=== PATIENT | male | born 1965 | race Caucasian/White ===

== ENCOUNTER 2021-04-30 02:10 | Emergency (ER) | payer OTHER ==
[~2021-04-30] VITALS: Ht 180.3 cm; Wt 80.0 kg
[2021-04-30] MEDS ORDERED: IV NORMAL SALINE 500ML BAG 500 ML IV ONE (02:30)
[2021-04-30] MEDS ORDERED: MORPHINE SULFATE 4 MG/ML VIAL. IV ONE (02:30)
[2021-04-30] MEDS ORDERED: ONDANSETRON PF 4 MG/2 ML VIAL. IVP ONE (02:30)
--- NOTE | 2021-04-30 02:31 | ED.ADGEN ---
General Adult EDM: Chief Complaint: ABDOMINAL PAIN HPI: HPI: Patient is a 55 year old male coming in for right lower quadrant abdominal pain. Patient states that 4 days ago he was lifting his lawnmower into the back of his truck. States he was okay at that time but after he woke up in the morning afterwards he had severe pain right lower quadrant. Patient states he has had decreased p.o. intake because he is trying not to go to the restroom. Says the pain is worse with coughing, bowel movements, and urinating. Denies any hematuria or testicular pain. Denies any penile discharge. Patient has had subjective fever and chills. Had a loose bowel movement earlier today. Review of Systems: Review of Systems: All other systems within normal limits except for as noted in the HPI Current Medications: Current Medications Medications (Trade) Dose Ordered Sig/Hitesh Start Time Stop Time Status Last Admin Dose Admin Info (CONTRAST GIVEN -- Rx MONITORING) 1 each PRN DAILY PRN 04/30/21 03:00 05/02/21 02:59 Iohexol (Omnipaque 300 Mg/ml) 75 ml 1X ONCE 04/30/21 03:00 04/30/21 03:01 DC 04/30/21 03:30 75 ML Morphine Sulfate (Morphine Sulfate) 4 mg 1X ONCE 04/30/21 02:30 04/30/21 02:53 DC 04/30/21 03:32 4 MG Ondansetron HCl (Zofran) 4 mg 1X ONCE 04/30/21 02:30 04/30/21 02:53 DC 04/30/21 03:32 4 MG Sodium Chloride 500 ml @ 500 mls/hr 1X ONCE 04/30/21 02:30 04/30/21 03:29 DC 04/30/21 03:31 500 MLS/HR Allergies: Allergies: Allergies Coded Allergies Type Severity Reaction Last Updated Verified Penicillins Allergy Intermediate 04/30/21 Yes Physical Exam: PE: Constitutional: Well developed, well nourished, no acute distress, non-toxic appearance. [] HENT: Normocephalic, atraumatic, bilateral external ears normal, nose normal. [] Eyes: PERRLA, conjunctiva normal, no discharge. [] Neck: No rigidity, supple, no stridor. [] Cardiovascular: Regular rate and rhythm, brisk cap refill [] Lungs & Thorax: Non labored symmetric respirations, no tachypnea or respiratory distress [] Abdomen: Soft, nondistended, right inguinal tenderness and lump. Skin: Warm, dry, no erythema, no rash. [] Back: Unremarkable Extremities: No deformities, range of motion grossly intact, no lower extremity edema [] Neurologic: Alert and oriented X 3, no focal deficits noted. [] Psychologic: Affect normal, judgement normal, mood normal. [] Current Patient Data: Labs: Laboratory Tests Test 04/30/21 02:20 04/30/21 03:04 Urine Collection Type Unknown Urine Color Yellow Urine Clarity Clear Urine pH 6.5 (<5.0-8.0) Urine Specific [place] >=1.030 (1.000-1.030) Urine Protein 30 mg/dL (NEG-TRACE) Urine Glucose (UA) Negative mg/dL (NEG) Urine Ketones (Stick) Negative mg/dL (NEG) Urine Blood Negative (NEG) Urine Nitrite Negative (NEG) Urine Bilirubin Negative (NEG) Urine Urobilinogen Dipstick 1.0 mg/dL (0.2 mg/dL) Urine Leukocyte Esterase Negative (NEG) Urine RBC Occ /HPF (0-2) Urine WBC 0 /HPF (0-4) Urine Squamous Epithelial Cells Occ /LPF Urine Bacteria 0 /HPF (0-FEW) White Blood Count 6.4 x10^3/uL (4.0-11.0) Red Blood Count 4.89 x10^6/uL (4.30-5.70) Hemoglobin 14.3 g/dL (13.0-17.5) Hematocrit 40.4 % (39.0-53.0) Mean Corpuscular Volume 83 fL (79-100) Mean Corpuscular Hemoglobin 29 pg (25-35) Mean Corpuscular Hemoglobin Concent 36 g/dL (31-37) Red Cell Distribution Width 13.1 % (11.5-14.5) Platelet Count 143 x10^3/uL (140-400) Neutrophils (%) (Auto) 70 % (31-73) Lymphocytes (%) (Auto) 11 % (24-48) L Monocytes (%) (Auto) 19 % (0-9) H Eosinophils (%) (Auto) 0 % (0-3) Basophils (%) (Auto) 0 % (0-3) Neutrophils # (Auto) 4.5 x10^3/uL (1.8-7.7) Lymphocytes # (Auto) 0.7 x10^3/uL (1.0-4.8) L Monocytes # (Auto) 1.2 x10^3/uL (0.0-1.1) H Eosinophils # (Auto) 0.0 x10^3/uL (0.0-0.7) Basophils # (Auto) 0.0 x10^3/uL (0.0-0.2) Platelet Estimate Pending Sodium Level 132 mmol/L (136-145) L Potassium Level 4.4 mmol/L (3.5-5.1) Chloride Level 97 mmol/L (98-107) L Carbon Dioxide Level 26 mmol/L (21-32) Anion Gap 9 (6-14) Blood Urea Nitrogen 19 mg/dL (8-26) Creatinine 1.0 mg/dL (0.7-1.3) Estimated GFR (Cockcroft-Gault) 77.6 BUN/Creatinine Ratio 19 (6-20) Glucose Level 113 mg/dL (70-99) H Lactic Acid Level 1.2 mmol/L (0.4-2.0) Calcium Level 8.7 mg/dL (8.5-10.1) Total Bilirubin 0.6 mg/dL (0.2-1.0) Aspartate Amino Transferase (AST) 37 U/L (15-37) Alanine Aminotransferase (ALT) 34 U/L (16-63) Alkaline Phosphatase 90 U/L (46-116) Troponin I Quantitative < 0.017 ng/mL (0.000-0.055) Total Protein 7.1 g/dL (6.4-8.2) Albumin 3.4 g/dL (3.4-5.0) Albumin/Globulin Ratio 0.9 (1.0-1.7) L Laboratory Tests 04/30/21 03:04 Laboratory Tests 04/30/21 03:04 Vital Signs: Vital Signs Date Time Temp Pulse Resp B/P (MAP) Pulse Ox O2 Delivery O2 Flow Rate FiO2 04/30/21 04:15 96 20 147/95 (112) 97 Room Air 04/30/21 02:25 100.5 100.5 EKG: EKG: Sinus rhythm, heart rate 107 bpm, normal axis, no ST elevation depression [] Heart Score: C/O Chest Pain: No Risk Factors: Risk Factors: DM, Current or recent (<one month) smoker, HTN, HLP, family history of CAD, obesity. Risk Scores: Score 0 - 3: 2.5% MACE over next 6 weeks - Discharge Home Score 4 - 6: 20.3% MACE over next 6 weeks - Admit for Clinical Observation Score 7 - 10: 72.7% MACE over next 6 weeks - Early Invasive Strategies Radiology/Procedures: Radiology/Procedures: [facility] [address] [place] [address] IMAGING REPORT Signed PATIENT: HAYDEN JURADO AACCOUNT: [id number] : 1965 LOCATION: ER AGE: 55 SEX: M EXAM STATUS: REG ER ORD. PHYSICIAN: ANITHA FARLEY MD REASON: RLQ pain PROCEDURE: CT ABD PELV W/ IV CONTRST ONLY EXAM: CT Abdomen and Pelvis with IV contrast CLINICAL HISTORY: Right lower quadrant pain. COMPARISON: none TECHNIQUE: Helical CT of the abdomen and pelvis was performed following the administration of intravenous contrast. Axial, coronal and sagittal reformatted images were generated. PQRS compliance statement - One or more of the following individualized dose reduction techniques were utilized for this study: 1. Automated exposure control 2. Adjustment of the mA and/or kV according to patient size 3. Use of iterative reconstruction technique FINDINGS: Lower Chest: Lung bases are clear. Abdomen and Pelvis: Spleen is enlarged. Calcified gallstones are seen within the contracted gallbladder. Heterogeneous low-attenuation along the gallbladder fossa of uncertain clinical significance, possibly focal fatty infiltration. Pancreas is unremarkable. Adrenal glands are unremarkable. Right upper pole renal cyst is seen. No hydronephrosis. Symmetric nephrograms. No hydroureter. Bladder wall thickening and associated infiltration anteriorly be seen with cystitis. Appendix is normal. Moderate colonic stool content is seen. No small or large bowel dilatation. No bowel obstruction. Aortic calcifications are seen. There is asymmetric enlargement of the right rectus abdominis muscle. No abdominal or pelvic lymphadenopathy. Trace fat-containing periumbilical hernia. Bones: No aggressive osseous lesion is seen. IMPRESSION: 1. Asymmetric thickening of the right rectus abdominis muscle, of uncertain clinical significance. In the setting of trauma this could be related to hematoma or contusion. Alternatively intramuscular mass or infectious process could also have this appearance 2. Bladder wall thickening may be seen with cystitis and can be correlated with urinalysis. 3. Appendix is normal. Electronically signed by: Lenin Aguirre MD (04/30/2021 4:12 AM) [facility] DICTATED and SIGNED BY: LENIN AGUIRRE MD DATE: 04/30/21 [id number] [] Course & Med Decision Making: Course & Med Decision Making Pertinent Labs and Imaging studies reviewed. (See chart for details) Discussed with urologist. He feels a area of inflammation is consistent with my physical exam and there is no hernia. Likely a muscle contusion or tear. Discussed return precautions with patient and symptomatic treatment. [] Dragon Disclaimer: Dragon Disclaimer: This electronic medical record was generated, in whole or in part, using a voice recognition dictation system. Departure Departure Impression: Primary Impression: Strain of rectus abdominis muscle Disposition: 07 LEFT AWOL/ELOPED Condition: STABLE Referrals: NO PCP (PCP) Patient Instructions: Muscle Strain Scripts Polyethylene Glycol 3350 (MIRALAX) 119 Gm Powder 17 GM PO DAILY for constipation, #527 GM 0 Refills dissolve in water Prov: ANITHA FARLEY MD 04/30/21 Hydrocodone/Acetaminophen (Hydrocodone-Acetamin 5-325 mg) 1 Each Tablet 1 EACH PO PRN Q6-8HRS PRN for PAIN for 3 Days, #12 TAB Prov: ANITHA FARLEY MD 04/30/21 ANITHA FARLEY MD Apr 30, 2021 02:31
[2021-04-30 02:41] LABS: BILIRUBIN,URINE NEGATIVE (NEG); CLARITY,URINE CLEAR; COLOR,URINE YELLOW; NITRITE,URINE NEGATIVE (NEG); PH,URINE 6.5 (<5.0-8.0); PROTEIN,URINE 30 mg/dL (NEG-TRACE)
[2021-04-30 02:46] LABS: BACTERIA,URINE 0 /HPF (0-FEW); RBC,URINE OCC /HPF (0-2); WBC,URINE 0 /HPF (0-4)
[2021-04-30] MEDS ORDERED: IOHEXOL 300 MG/ML 100ML VIAL. IV ONE (03:00)
[2021-04-30] MEDS ORDERED: CONTRAST GIVEN. MC PRN (03:00)
[2021-04-30 03:17] LABS: BASO % 0 % (0-3); EOS % 0 % (0-3); HEMATOCRIT 40.4 % (39.0-53.0); HEMOGLOBIN 14.3 g/dL (13.0-17.5); LYMPH # 0.7 x10^3/uL (1.0-4.8); LYMPH % 11 % (24-48); MEAN CORPUSCULAR HEMOGLOBIN 29 pg (25-35); MEAN CORPUSCULAR HGB CONC 36 g/dL (31-37); MEAN CORPUSCULAR VOLUME 83 fL (79-100); MONO # 1.2 x10^3/uL (0.0-1.1); MONO % 19 % (0-9); NEUT # 4.5 x10^3/uL (1.8-7.7); NEUT % 70 % (31-73); PLATELET COUNT 143 x10^3/uL (140-400); RED BLOOD COUNT 4.89 x10^6/uL (4.30-5.70); RED CELL DISTRIBUTION WIDTH 13.1 % (11.5-14.5); WHITE BLOOD COUNT 6.4 x10^3/uL (4.0-11.0)
[2021-04-30 03:24] LABS: CALCIUM 8.7 mg/dL (8.5-10.1); GFR 77.6; POTASSIUM 4.4 mmol/L (3.5-5.1)
[2021-04-30 03:30] LABS: ALBUMIN 3.4 g/dL (3.4-5.0); ALBUMIN/GLOBULIN RATIO 0.9 (1.0-1.7); TOTAL BILIRUBIN 0.6 mg/dL (0.2-1.0); TOTAL PROTEIN 7.1 g/dL (6.4-8.2)
--- NOTE | 2021-04-30 04:10 | EKG ---
[facility] [address] [place] [address] Test Date: 2021-04-30 Test Time: 03:10:24 Pat Name: HAYDEN JURADO Department: Room: Gender: Business Solution Analyst: : 1965 Requested By: ANITHA FARLEY Order Number: [id number] Reading MD: Measurements Intervals [place] Rate: 107 P: 49 OK: 106 QRS: 64 QRSD: 78 T: 22 QT: 328 QTc: 437 Interpretive Statements SINUS TACHYCARDIA QRS(T) CONTOUR ABNORMALITY CONSIDER ANTEROSEPTAL MYOCARDIAL DAMAGE POSSIBLY ABNORMAL ECG RI6.01 No previous ECG available for comparison
--- NOTE | 2021-04-30 04:14 | RAD ---
EXAM: CT Abdomen and Pelvis with IV contrast CLINICAL HISTORY: Right lower quadrant pain. COMPARISON: none TECHNIQUE: Helical CT of the abdomen and pelvis was performed following the administration of intrave nous contrast. Axial, coronal and sagittal reformatted images were generated. PQRS compliance statement - One or more of the following individualized dose reduction techniques wer e utilized for this study: 1. Automated exposure control 2. Adjustment of the mA and/or kV according to patient size 3. Use of iterative reconstruction technique FINDINGS: Lower Chest: Lung bases are clear. Abdomen and Pelvis: Spleen is enlarged. Calcified gallstones are seen within the contracted gallbladder. Heterogeneous lo w-attenuation along the gallbladder fossa of uncertain clinical significance, possibly focal fatty in filtration. Pancreas is unremarkable. Adrenal glands are unremarkable. Right upper pole renal cyst is seen. No hydronephrosis. Symmetric ne phrograms. No hydroureter. Bladder wall thickening and associated infiltration anteriorly be seen wit h cystitis. Appendix is normal. Moderate colonic stool content is seen. No small or large bowel dilat ation. No bowel obstruction. Aortic calcifications are seen. There is asymmetric enlargement of the right rectus abdominis muscle. No abdominal or pelvic lymphadenopathy. Trace fat-containing periumbilical hernia. Bones: No aggressive osseous lesion is seen. IMPRESSION: 1. Asymmetric thickening of the right rectus abdominis muscle, of uncertain clinical significance. I n the setting of trauma this could be related to hematoma or contusion. Alternatively intramuscular m ass or infectious process could also have this appearance 2. Bladder wall thickening may be seen with cystitis and can be correlated with urinalysis. 3. Appendix is normal. Electronically signed by: Lenin Aguirre MD (04/30/2021 4:12 AM) [facility]
[2021-04-30 04:20] VITALS: BP 151/85
[2021-04-30] MEDS ORDERED: POLY119P4 PO (04:27)
[2021-04-30] MEDS ORDERED: HYDR-2759 PO (04:27)
[2021-04-30] MEDS ORDERED: HYDROcodone/APAP 5/325MG 1 TAB TABLET PO ONE (04:30)
[2021-04-30 05:04] LABS: % ATYL 3 % (0-0); % BANDS 7 % (0-9); % EOS 1 % (0-5); % LYMPHS 13 % (24-48); % MONOS 9 % (0-10); % SEGS 67 % (35-66); PLT ESTIMATE ADEQUATE (ADEQUATE)
== END 2021-04-30 04:48 | disposition home or self-care (01) ==
LOC: ER 02:10
DX: S39.011A Strain of muscle, fascia and tendon of abdomen, initial encounter (principal); Z88.0 Allergy status to penicillin; X50.0XXA Overexertion from strenuous movement or load, initial encounter; Y93.89 Activity, other specified; Y92.89 Other specified places as the place of occurrence of the external cause; Y99.8 Other external cause status
CPT/HCPCS: 36415; 74177; 80053; 81001; 83605; 84484; 85007; 85025; 87040; 87205; 93005; 96361; 96374; 96375; 99285; J2270; J2405; J7040; Q9967